=== PATIENT | male | born 1950 | race American Indian/Alaskan Native ===

== ENCOUNTER 2017-01-26 09:50 | Day surgery (SDC) | payer OTHER ==
[2017-01-26] MEDS ORDERED: PROPOFOL 20 ML ONE ×2 (10:21)
[2017-01-26] MEDS ORDERED: LIDOCAINE HCL/PF 2% SDV 5ML VIAL ONE (10:21)
[2017-01-26 11:32] VITALS: TEMP 97
[2017-01-26 12:42] VITALS: BP 115/76; PULSE 55
== END 2017-01-26 12:42 | disposition home or self-care (01) ==
LOC: JASU-ENDO 09:50
PROVIDERS: ATTEND Internal Medicine Gastroenterology
PROC: 0DBH8ZX Excision of Cecum, Via Natural or Artificial Opening Endoscopic, Diagnostic (ICD-10-PCS; 2017-01-26)
PROC: 0DB98ZX Excision of Duodenum, Via Natural or Artificial Opening Endoscopic, Diagnostic (ICD-10-PCS; 2017-01-26)
PROC: 0DB68ZX Excision of Stomach, Via Natural or Artificial Opening Endoscopic, Diagnostic (ICD-10-PCS; 2017-01-26)
PROC: 0DB38ZX Excision of Lower Esophagus, Via Natural or Artificial Opening Endoscopic, Diagnostic (ICD-10-PCS; 2017-01-26)
PROC: 0DBN8ZX Excision of Sigmoid Colon, Via Natural or Artificial Opening Endoscopic, Diagnostic (ICD-10-PCS; principal; 2017-01-26 10:30)
DX: Z12.11 Encounter for screening for malignant neoplasm of colon (principal); D12.0 Benign neoplasm of cecum; D12.5 Benign neoplasm of sigmoid colon; K64.8 Other hemorrhoids; K21.0 Gastro-esophageal reflux disease with esophagitis; K25.9 Gastric ulcer, unspecified as acute or chronic, without hemorrhage or perforation; K29.80 Duodenitis without bleeding; K29.70 Gastritis, unspecified, without bleeding
CPT/HCPCS: 88305-TC; 88342-TC

== ENCOUNTER 2022-08-18 04:14 | Day surgery (SDC) | payer OTHER ==
[2022-08-16 16:40] VITALS: BMI 28.7
[2022-08-18 08:37] VITALS: TEMP 98.4
[2022-08-18 08:49] VITALS: PULSE 67; RESP 12
[2022-08-18 09:37] VITALS: BP 111/68
== END 2022-08-18 09:25 | disposition home or self-care (01) ==
LOC: JASU-ENDO 04:14
PROVIDERS: ATTEND Internal Medicine Gastroenterology
PROC: 0DBK8ZX Excision of Ascending Colon, Via Natural or Artificial Opening Endoscopic, Diagnostic (ICD-10-PCS; 2022-08-18)
PROC: 0DBL8ZX Excision of Transverse Colon, Via Natural or Artificial Opening Endoscopic, Diagnostic (ICD-10-PCS; 2022-08-18)
PROC: 0DBM8ZX Excision of Descending Colon, Via Natural or Artificial Opening Endoscopic, Diagnostic (ICD-10-PCS; principal; 2022-08-18 08:00)
DX: Z12.11 Encounter for screening for malignant neoplasm of colon (principal); D12.3 Benign neoplasm of transverse colon; D12.2 Benign neoplasm of ascending colon; D12.4 Benign neoplasm of descending colon; K64.8 Other hemorrhoids; Z86.010 Personal history of colon polyps; I10 Essential (primary) hypertension
CPT/HCPCS: 88305-TC